=== PATIENT | female | born 1970 | race Caucasian/White ===

== ENCOUNTER 2016-03-11 14:41 | Outpatient (CLI) | payer BC | END 2016-03-11 14:42 | disposition home or self-care (01) | DX: D68.51 Activated protein C resistance (principal); Z79.01 Long term (current) use of anticoagulants ==

== ENCOUNTER 2016-04-21 12:55 | Outpatient (CLI) | payer BC | END 2016-04-21 12:56 | disposition home or self-care (01) | DX: Z79.01 Long term (current) use of anticoagulants (principal); D68.51 Activated protein C resistance ==

== ENCOUNTER 2016-06-03 11:11 | Outpatient (CLI) | payer BC | END 2016-06-03 11:12 | disposition home or self-care (01) | DX: Z79.01 Long term (current) use of anticoagulants (principal); D68.51 Activated protein C resistance ==

== ENCOUNTER 2016-07-01 10:55 | Outpatient (CLI) | payer BC | END 2016-07-01 10:56 | disposition home or self-care (01) | DX: Z79.01 Long term (current) use of anticoagulants (principal); D68.51 Activated protein C resistance ==

== ENCOUNTER 2016-07-29 09:50 | Outpatient (CLI) | payer BC ==
[2016-07-29 18:20] LABS: INR 3.5 (0.8-1.2); PT - PROTHROMBIN TIME 40.3 secs (9.9-12.6)
== END 2016-07-29 09:51 | disposition home or self-care (01) ==
LOC: LAB.F 09:50
PROVIDERS: ATTEND Family Medicine
DX: D68.51 Activated protein C resistance (principal); Z79.01 Long term (current) use of anticoagulants
CPT/HCPCS: 36415; 85610

== ENCOUNTER 2016-08-12 09:50 | Outpatient (CLI) | payer BC ==
[2016-08-12 18:42] LABS: INR 4.1 (0.8-1.2); PT - PROTHROMBIN TIME 47.5 secs (9.9-12.6)
== END 2016-08-12 09:51 | disposition home or self-care (01) ==
LOC: LAB.F 09:50
PROVIDERS: ATTEND Family Medicine
DX: D68.51 Activated protein C resistance (principal); Z79.01 Long term (current) use of anticoagulants
CPT/HCPCS: 36415; 85610

== ENCOUNTER 2016-08-27 10:46 | Outpatient (CLI) | payer BC ==
[2016-08-27 18:07] LABS: INR 2.9 (0.8-1.2); PT - PROTHROMBIN TIME 33.4 secs (9.9-12.6)
== END 2016-08-27 10:47 | disposition home or self-care (01) ==
LOC: LAB.F 10:46
PROVIDERS: ATTEND Family Medicine
DX: D68.51 Activated protein C resistance (principal); Z79.01 Long term (current) use of anticoagulants
CPT/HCPCS: 36415; 85610

== ENCOUNTER 2016-09-18 14:20 | Emergency (ER) | payer BC ==
[2016-09-18] MEDS ORDERED: ASPIRIN CHEW 81 MG TABLET PO STA (14:45)
[2016-09-18] MEDS ORDERED: NITROGLYCERIN SL 0.4 MG TABLET SL STA (14:45)
[2016-09-18 14:46] LABS: BILIRUBIN,URINE NEGATIVE (NEGATIVE)
[2016-09-18 14:47] LABS: BASOPHILS # (AUTO) 0.1 10^3/uL (0.0-0.1); BASOPHILS % (AUTO) 1.4 %; EOSINOPHILS # (AUTO) 0.1 10^3/uL (0.0-0.7); EOSINOPHILS % (AUTO) 1.8 %; HCT - HEMATOCRIT 40.1 % (37.0-47.0); HGB - HEMOGLOBIN 13.8 g/dL (12.0-16.0); LYMPHOCYTES # (AUTO) 1.7 10^3/uL (1.5-3.5); LYMPHOCYTES % (AUTO) 30.9 %; MEAN CORPUSCULAR HEMOGLOBIN 31.6 pg (27.0-31.0); MEAN CORPUSCULAR HGB CONC 34.4 g/dL (32.0-36.0); MEAN CORPUSCULAR VOLUME 91.8 fL (81.0-99.0); MEAN PLATELET VOLUME 7.2 fL (7.9-10.8); MONOCYTES # (AUTO) 0.5 10^3/uL (0.0-1.0); MONOCYTES % (AUTO) 9.1 %; NEUTROPHILS # (AUTO) 3.2 10^3/uL (1.5-6.6); NEUTROPHILS % (AUTO) 56.8 %; RED BLOOD COUNT 4.37 10^6/uL (4.20-5.40); RED CELL DISTRIBUTION WIDTH 13.3 % (12.0-15.0); UNCORRECTED WHITE BLOOD COUNT 5.7 x10^3/uL; WHITE BLOOD COUNT 5.7 x10^3/uL (4.8-10.8)
--- NOTE | 2016-09-18 14:47 | ED Physician Documentation ---
PD HPI CHEST PAIN - Stated complaint Stated Complaint: CHEST PX - Chief complaint Chief Complaint: Cardiac - History obtained from History obtained from: Patient, Friend - History of Present Illness Timing - onset: How many hours ago (1.5) Timing - onset during: Rest Timing - duration: Hours (1.5) Timing - details: Abrupt onset Pain level max: 8 Pain level now: 8 Quality: Pressure, Aching, Sharp Location: Substernal Radiation: Other (non-radiating) Improved by: Nothing Worsened by: No: Exertion, Inspiration, Eating, Movement, Palpation, Position Associated symptoms: Nausea, General Weakness. No: Shortness of air, Diaphoresis, Vomiting, Feeling faint / dizzy, Palpitations Similar symptoms before: Has not had sx before Recently seen: Not recently seen Review of Systems Ten Systems: 10 systems reviewed and negative Constitutional: denies: Fever, Chills Ears: denies: Ear pain Nose: denies: Rhinorrhea / runny nose, Congestion Throat: denies: Sore throat Cardiac: denies: Chest pain / pressure Respiratory: denies: Cough GI: denies: Nausea, Vomiting, Diarrhea Skin: denies: Rash Musculoskeletal: denies: Neck pain, Back pain Neurologic: denies: Focal weakness, Numbness, Headache PD PAST MEDICAL HISTORY - Past Medical History Past Medical History: Yes Other Past Medical History: factor V leiden - Past Surgical History Past Surgical History: Yes Other past surgical history: shoulder surgery - Present Medications Home Medications: Ambulatory Orders Medication Instructions Recorded Confirmed Hydrocodone/Acetaminophen 1 - 2 each PO Q6H PRN #14 tablet 09/18/16 [Hydrocodon-Acetaminophen 5-325] - Allergies Allergies/Adverse Reactions: Allergies Allergy/AdvReac Type Severity Reaction Status Date / Time Penicillins Allergy Unknown Verified 09/18/16 16:09 Sulfa (Sulfonamide Allergy Unknown Verified 09/18/16 16:09 Antibiotics) - Living Situation Living Arrangement: reports: At home - Social History Does the pt smoke?: No Does the pt drink ETOH?: Yes Does the pt have substance abuse?: No PD ED PE NORMAL - Vitals Vital signs reviewed: Yes - General General: Alert and oriented X 3, No acute distress, Well developed/nourished - HEENT HEENT: PERRL, Moist mucous membranes - Neck Neck: Supple, no meningeal sign, No JVD, No bruit - Cardiac Cardiac: RRR, No murmur, Strong equal pulses - Respiratory Respiratory: No respiratory distress, Clear bilaterally - Abdomen Abdomen: Soft, Other (TTP epigastric without peritoneal signs.) - Back Back: No CVA TTP, No spinal TTP - Derm Derm: Warm and dry, No rash - Extremities Extremities: No edema, No calf tenderness / cord - Neuro Neuro: Alert and oriented X 3 - Psych Psych: Normal mood, Normal affect Results - Vitals Vitals: Vital Signs - 24 hr 09/18/16 09/18/16 09/18/16 14:23 15:58 17:39 Temperature 36.8 C Heart Rate 47 L 40 L 55 L Respiratory 14 18 18 Rate Blood Pressure 142/74 H 120/73 119/65 O2 Saturation 100 97 100 09/18/16 19:15 Temperature 36.2 C L Heart Rate 51 L Respiratory 16 Rate Blood Pressure 128/60 O2 Saturation 98 Oxygen O2 Source Room air - EKG (time done) 1440 Rate: Rate (enter#) (45) Rhythm: Sinus bradycardia [place]: Normal Intervals: Other (short NM) QRS: Normal Ischemia: Normal ST segments Computer interpretation: Agree with computer - Labs Labs: Laboratory Tests 09/18/16 09/18/16 09/18/16 14:30 14:40 14:40 WBC 5.7 RBC 4.37 Hgb 13.8 Hct 40.1 MCV 91.8 MCH 31.6 H MCHC 34.4 RDW 13.3 Plt Count 232 MPV 7.2 L Neut # 3.2 Lymph # 1.7 [place] # 0.5 Eos # 0.1 Baso # 0.1 Absolute Nucleated RBC 0.00 Nucleated RBCs 0.0 PT INR Sodium 136 Potassium 3.5 Chloride 103 Carbon Dioxide 26 Anion Gap 7.0 BUN 13 Creatinine 0.8 Estimated GFR (MDRD) 77 L Glucose 113 H Calcium 9.2 Total Bilirubin 0.5 AST 32 ALT 24 Alkaline Phosphatase 48 Troponin I Total Protein 7.5 Albumin 4.7 Globulin 2.8 Albumin/Globulin Ratio 1.7 Lipase 29 Urine Color YELLOW Urine Clarity CLEAR Urine pH 6.0 Ur Specific [place] 1.010 Urine Protein NEGATIVE Urine Glucose (UA) NEGATIVE Urine Ketones NEGATIVE Urine Occult Blood NEGATIVE Urine Nitrite NEGATIVE Urine Bilirubin NEGATIVE Urine Urobilinogen 0.2 (NORMAL) Ur Leukocyte Esterase NEGATIVE Ur Microscopic Review NOT INDICATED Urine Culture Comments NOT INDICATED 09/18/16 09/18/16 09/18/16 14:40 14:40 16:45 WBC RBC Hgb Hct MCV MCH MCHC RDW Plt Count MPV Neut # Lymph # [place] # Eos # Baso # Absolute Nucleated RBC Nucleated RBCs PT 38.6 H INR 3.4 H Sodium Potassium Chloride Carbon Dioxide Anion Gap BUN Creatinine Estimated GFR (MDRD) Glucose Calcium Total Bilirubin AST ALT Alkaline Phosphatase Troponin I < 0.04 < 0.04 Total Protein Albumin Globulin Albumin/Globulin Ratio Lipase Urine Color Urine Clarity Urine pH Ur Specific [place] Urine Protein Urine Glucose (UA) Urine Ketones Urine Occult Blood Urine Nitrite Urine Bilirubin Urine Urobilinogen Ur Leukocyte Esterase Ur Microscopic Review Urine Culture Comments - Rads (name of study) CT abd/pelvis Radiology: Prelim report reviewed, EMP read contemporaneously, See rad report ( Left ovarian probable collapsing corpus luteum, measures 1.7 x 1.3 cm, within normal limits. Small free fluid in the posterior cul-de-sac. . Left adnexal varices, can be seen with pelvic congestion syndrome. Prominent left ovarian vein. Normal appendix. ) cxr Radiology: Prelim report reviewed, EMP read contemporaneously, See rad report ( no acute disease) PD MEDICAL DECISION MAKING - ED course Complexity details: reviewed results, re-evaluated patient, considered differential (No ST elevation NC, no aortic dissection, no PE, no tension pneumothorax, no aortic aneurysm), d/w patient, d/w family ED course: Patient refuses aspirin in the ED. Patient is a 46-year-old female who presents to the emergency department with chest and abdominal pain today. Not much change with morphine, nitroglycerin or GI cocktail. During her emergency department stay, the pain moved from her chest to her left lower abdomen. CT scan was undertaken and reveals a collapsing left ovarian cyst with a small free fluid in the pelvis. Possible that this is causing her lower abdominal pain? No evidence of aortic dissection , iliac artery aneurysm, aortic aneurysm. Negative troponin 2. HEART score is 1. Low risk for cardiac event. Pain well controlled in the emergency department. Recommend that she follow-up closely with her doctor for further cardiac evaluation including a cardiac stress test. She does run several miles daily and does not have any chest pain when running. No evidence of pulmonary embolus. INR is therapeutic. We will trial her on pain medication for the next 1-2 days and she will return if she worsens. Patient counseled regarding signs and symptoms for which I believe and urgent re-evaluation would be necessary. Patient with good understanding of and agreement to plan and is comfortable going home at this time This document was made in part using voice recognition software. While efforts are made to proofread this document, sound alike and grammatical errors may occur. Departure - Departure Disposition: 01 Home, Self Care Clinical Impression: Chest pain Qualifiers: Chest pain type: unspecified Qualified Code(s): R07.9 - Chest pain, unspecified Ovarian cyst Qualifiers: Laterality: left Qualified Code(s): N83.202 - Unspecified ovarian cyst, left side Condition: Good Instructions: ED Chest Pain Atypical Unkn Cause, ED Cyst Ovarian Follow-Up: Rebecca Cueto MD [Primary Care Provider] - Within 1 week Prescriptions: Hydrocodone/Acetaminophen [Hydrocodon-Acetaminophen 5-325] 1 - 2 each PO Q6H PRN #14 tablet PRN Reason: pain Comments: The cause of your symptoms is unclear today. Return if you worsen. It is recommended that you follow-up with your doctor next week for a cardiac stress test. Return immediately if you worsen in any way. The pain from your ovarian cyst should improve over the next 24-48 hours. Do not drink alcohol or drive while on narcotic pain medicine. Note that many narcotic pain relievers also contain tylenol/acetaminophen. Please ensure that your total dose of acetaminophen from all sources does not exceed 3 grams (3000mg) per day. You may constipated on this medication, take a stool softener such as "Colace" twice a day while you are on it. Also recommend a [id number] laxative such as senna or MiraLAX any day that you do not have a bowel movement. If you received narcotic pain medication in the emergency department, do not drive or operate machinery for the next 24 hours. Discharge Date/Time: 09/18/16 19:15
[2016-09-18 14:48] LABS: UA CHARGE (STRIP ONLY) YES; UR CULTURE IF IND NOT INDICATED
[2016-09-18] MEDS ORDERED: ASPIRIN CHEW 81 MG TABLET ONE (14:54)
[2016-09-18] MEDS ORDERED: NITROGLYCERIN SL 0.4 MG TABLET SL ONE (14:54)
[2016-09-18] MEDS ORDERED: LIDOCAINE VISCOUS 2% 15 ML UDC MM STA (14:56)
[2016-09-18] MEDS ORDERED: PHENobarb/HYOSCY/ATROPINE/SCOP 5 ML SYRINGE PO STA (14:56)
[2016-09-18] MEDS ORDERED: MAG HYDROX/AL HYDROX/SIMETH 30 ML UDC PO STA (14:56)
[2016-09-18] MEDS ORDERED: SUCRALFATE 1 GM/10 ML UDC PO STA (14:56)
[2016-09-18] MEDS ORDERED: SUCRALFATE 1 GM/10 ML UDC ONE (14:58)
[2016-09-18] MEDS ORDERED: PHENobarb/HYOSCY/ATROPINE/SCOP 5 ML SYRINGE PO ONE (14:58)
[2016-09-18] MEDS ORDERED: LIDOCAINE VISCOUS 2% 15 ML UDC MM ONE (14:58)
[2016-09-18] MEDS ORDERED: MAG HYDROX/AL HYDROX/SIMETH 30 ML UDC ONE (14:58)
[2016-09-18 15:00] LABS: ALBUMIN/GLOBULIN RATIO 1.7 (1.0-2.2); BILIRUBIN,TOTAL 0.5 mg/dL (0.2-1.0); CALCIUM 9.2 mg/dL (8.5-10.3); CREATININE 0.8 mg/dL (0.4-1.0); POTASSIUM 3.5 mmol/L (3.5-5.0); TOTAL PROTEIN 7.5 g/dL (6.7-8.2)
--- NOTE | 2016-09-18 15:31 | XRAY Preliminary Report ---
Exam: XR Chest 1 View IMPRESSION: No acute cardiopulmonary disease seen. Probable bilateral nipple shadows. Pulmonary nodul es are not excluded and repeat chest x-ray with nipple markers could further evaluate. [facility] SITE ID: [id number]
--- NOTE | 2016-09-18 15:34 | XRAY Report ---
EXAM: CHEST RADIOGRAPHY EXAM DATE: 09/18/2016 03:01 PM. CLINICAL HISTORY: Chest pain. COMPARISON: None. TECHNIQUE: 1 view. FINDINGS: Lungs/Pleura: Probable bilateral nipple shadows. Pulmonary nodules are not excluded and repeat chest x-ray with nipple markers could further evaluate. No pleural effusion or pneumothorax. No consolidati on or airspace disease. Mediastinum: Within exam limitations, cardiomediastinal contour is normal. IMPRESSION: No acute cardiopulmonary disease seen. Probable bilateral nipple shadows. Pulmonary nodul es are not excluded and repeat chest x-ray with nipple markers could further evaluate. [facility] Referring Provider Line: [phone] SITE ID: [id number]
[2016-09-18] MEDS ORDERED: MORPHINE 2 MG/ML SYRINGE IVP STA (15:36)
[2016-09-18 15:43] LABS: INR 3.4 (0.8-1.2); PT - PROTHROMBIN TIME 38.6 secs (9.9-12.6)
[2016-09-18] MEDS ORDERED: MORPHINE 2 MG/ML SYRINGE ONE (15:47)
[2016-09-18] MEDS ORDERED: LORazepam 2 MG/ML SYRINGE IVP STA (16:02)
[2016-09-18] MEDS ORDERED: LORazepam 2 MG/ML SYRINGE ONE (16:03)
[2016-09-18] MEDS ORDERED: IOPAMIDOL-300 100 ML VIAL IVP ONE (17:46)
[2016-09-18] MEDS ORDERED: HYDROmorphone 1 MG/ML SYRINGE IVP STA (18:23)
[2016-09-18] MEDS ORDERED: HYDROmorphone 1 MG/ML SYRINGE ONE (18:27)
--- NOTE | 2016-09-18 18:29 | CT Report ---
EXAM: CT ABDOMEN AND PELVIS EXAM DATE: 09/18/2016 05:50 PM. CLINICAL HISTORY: Left lower quadrant abdominal pain, chest pain. COMPARISONS: None. TECHNIQUE: Routine helical CT imaging was performed through the abdomen and pelvis. IV contrast: 100 mL Isovue 300. Enteric contrast: No. Reconstructions: Coronal and sagittal. In accordance with CT protocol optimization, one or more of the following dose reduction techniques w ere utilized for this exam: automated exposure control, adjustment of mA and/or KV based on patient s ize, or use of iterative reconstructive technique. FINDINGS: Lung Bases: Unremarkable. Liver: Normal. No masses. Gallbladder/Bile Ducts: Small calcified gallstones. No bile duct dilatation. Spleen: Normal. Pancreas: Normal. Adrenal Glands: Normal. Kidneys: Normal. No masses or hydronephrosis. Peritoneal Cavity/Bowel: No acute bowel findings. Moderate stool in the ascending colon. Normal appen musa. Small free fluid in the posterior cul-de-sac. Pelvic Organs: Left ovarian probable collapsing corpus luteum, measures 1.7 x 1.3 cm. Left adnexal va rices, can be seen with pelvic congestion syndrome. Prominent left ovarian vein. The uterus is anteve rted. The bladder appears unremarkable. Small free fluid in the posterior cul-de-sac. Vasculature: Nothing acute Bones: No acute bone findings IMPRESSION: 1. Left ovarian probable collapsing corpus luteum, measures 1.7 x 1.3 cm, within normal limits. 2. Small free fluid in the posterior cul-de-sac. 3. Left adnexal varices, can be seen with pelvic congestion syndrome. Prominent left ovarian vein. 4. Normal appendix. [facility] Referring Provider Line: [phone] SITE ID: [id number]
[2016-09-18] MEDS ORDERED: HYDROcod/ACETAM 5/325 MG TABLET PO STA (18:44)
[2016-09-18 19:16] VITALS: BP 128/60
== END 2016-09-18 19:15 | disposition home or self-care (01) ==
LOC: ED 14:20
DX: R07.9 Chest pain, unspecified (principal); N83.202 Unspecified ovarian cyst, left side; D68.51 Activated protein C resistance
CPT/HCPCS: 36415; 71010; 74177; 80053; 81003; 83690; 84484; 85025; 85610; 93005; 96374; 96375; 99284; 99285; A9270; J1170; J2060; Q9967; 81001; 87086

== ENCOUNTER 2016-09-24 09:43 | Outpatient (CLI) | payer BC ==
[2016-09-24 18:19] LABS: INR 2.5 (0.8-1.2); PT - PROTHROMBIN TIME 28.2 secs (9.9-12.6)
== END 2016-09-24 09:44 | disposition home or self-care (01) ==
LOC: LAB.F 09:43
PROVIDERS: ATTEND Family Medicine
DX: D68.51 Activated protein C resistance (principal); Z79.01 Long term (current) use of anticoagulants
CPT/HCPCS: 36415; 85610

== ENCOUNTER 2016-10-22 10:14 | Outpatient (CLI) | payer BC ==
[2016-10-22 17:53] LABS: INR 3.2 (0.8-1.2); PT - PROTHROMBIN TIME 36.3 secs (9.9-12.6)
== END 2016-10-22 10:15 | disposition home or self-care (01) ==
LOC: LAB.F 10:14
PROVIDERS: ATTEND Family Medicine
DX: D68.51 Activated protein C resistance (principal); Z79.01 Long term (current) use of anticoagulants
CPT/HCPCS: 36415; 85610

== ENCOUNTER 2016-11-04 13:55 | Outpatient (CLI) | payer BC ==
[2016-11-04 18:34] LABS: INR 3.1 (0.8-1.2); PT - PROTHROMBIN TIME 35.4 secs (9.9-12.6)
== END 2016-11-04 13:56 | disposition home or self-care (01) ==
LOC: LAB.F 13:55
PROVIDERS: ATTEND Family Medicine
DX: D68.51 Activated protein C resistance (principal)
CPT/HCPCS: 36415; 85610

== ENCOUNTER 2016-11-20 09:45 | Outpatient (CLI) | payer BC ==
[2016-11-20 18:20] LABS: INR 2.8 (0.8-1.2); PT - PROTHROMBIN TIME 31.9 secs (9.9-12.6)
== END 2016-11-20 09:46 | disposition home or self-care (01) ==
LOC: LAB.F 09:45
PROVIDERS: ATTEND Family Medicine
DX: D68.51 Activated protein C resistance (principal); Z79.01 Long term (current) use of anticoagulants
CPT/HCPCS: 36415; 85610

== ENCOUNTER 2016-12-16 09:38 | Outpatient (CLI) | payer BC ==
[2016-12-16 18:05] LABS: INR 2.5 (0.8-1.2); PT - PROTHROMBIN TIME 28.9 secs (9.9-12.6)
== END 2016-12-16 09:39 | disposition home or self-care (01) ==
LOC: LAB.F 09:38
PROVIDERS: ATTEND Family Medicine
DX: D68.51 Activated protein C resistance (principal); Z79.01 Long term (current) use of anticoagulants
CPT/HCPCS: 36415; 85610

== ENCOUNTER 2017-02-10 12:40 | Outpatient (CLI) | payer BC ==
[2017-02-10 18:55] LABS: INR 2.5 (0.8-1.2); PT - PROTHROMBIN TIME 27.1 secs (9.9-12.6)
== END 2017-02-10 12:41 | disposition home or self-care (01) ==
LOC: LAB.F 12:40
PROVIDERS: ATTEND Family Medicine
DX: D68.51 Activated protein C resistance (principal); Z79.01 Long term (current) use of anticoagulants
CPT/HCPCS: 36415; 85610

== ENCOUNTER 2017-03-11 14:21 | Outpatient (CLI) | payer OTHER ==
[2017-03-11 17:47] LABS: INR 2.9 (0.8-1.2); PT - PROTHROMBIN TIME 31.6 secs (9.9-12.6)
== END 2017-03-11 14:22 | disposition home or self-care (01) ==
LOC: LAB.F 14:21
PROVIDERS: ATTEND Family Medicine
DX: D68.51 Activated protein C resistance (principal); Z79.01 Long term (current) use of anticoagulants
CPT/HCPCS: 36415; 85610

== ENCOUNTER 2017-04-14 08:00 | Outpatient (CLI) | payer OTHER ==
[2017-04-14 17:57] LABS: INR 2.1 (0.8-1.2); PT - PROTHROMBIN TIME 22.8 secs (9.9-12.6)
== END 2017-04-14 08:01 | disposition home or self-care (01) ==
LOC: LAB.R 08:00 → LAB.F 08:01
PROVIDERS: ATTEND Family Medicine
DX: D68.51 Activated protein C resistance (principal); Z79.01 Long term (current) use of anticoagulants
CPT/HCPCS: 36415; 85610

== ENCOUNTER 2017-05-26 10:05 | Outpatient (CLI) | payer OTHER ==
[2017-05-26 17:58] LABS: INR 3.3 (0.8-1.2); PT - PROTHROMBIN TIME 35.7 secs (9.9-12.6)
== END 2017-05-26 10:06 | disposition home or self-care (01) ==
LOC: LAB.F 10:05
PROVIDERS: ATTEND Family Medicine
DX: D68.51 Activated protein C resistance (principal); Z79.01 Long term (current) use of anticoagulants
CPT/HCPCS: 36415; 85610

== ENCOUNTER 2017-06-21 10:55 | Outpatient (CLI) | payer OTHER ==
[2017-06-21 17:46] LABS: INR 3.1 (0.8-1.2); PT - PROTHROMBIN TIME 33.8 secs (9.9-12.6)
== END 2017-06-21 10:56 | disposition home or self-care (01) ==
LOC: LAB.F 10:55
PROVIDERS: ATTEND Family Medicine
DX: D68.51 Activated protein C resistance (principal); Z79.01 Long term (current) use of anticoagulants
CPT/HCPCS: 36415; 85610

== ENCOUNTER 2017-07-08 09:40 | Outpatient (CLI) | payer OTHER | END 2017-07-08 09:41 | disposition home or self-care (01) | LOC: LAB.F 09:40 | PROVIDERS: ATTEND Family Medicine | DX: D68.51 Activated protein C resistance (principal); Z79.01 Long term (current) use of anticoagulants | CPT/HCPCS: 36415; 85610 ==

== ENCOUNTER 2017-08-05 09:20 | Outpatient (CLI) | payer OTHER ==
[2017-08-05 18:33] LABS: INR 2.5 (0.8-1.2); PT - PROTHROMBIN TIME 27.1 secs (9.9-12.6)
== END 2017-08-05 09:21 | disposition home or self-care (01) ==
LOC: LAB.F 09:20
PROVIDERS: ATTEND Family Medicine
DX: D68.51 Activated protein C resistance (principal); Z79.01 Long term (current) use of anticoagulants
CPT/HCPCS: 36415; 85610

== ENCOUNTER 2017-09-09 10:19 | Outpatient (CLI) | payer OTHER ==
[2017-09-09 17:42] LABS: INR 3.3 (0.8-1.2); PT - PROTHROMBIN TIME 35.3 secs (9.9-12.6)
== END 2017-09-09 10:20 | disposition home or self-care (01) ==
LOC: LAB.F 10:19
PROVIDERS: ATTEND Family Medicine
DX: Z79.01 Long term (current) use of anticoagulants (principal); D68.51 Activated protein C resistance
CPT/HCPCS: 36415; 85610

== ENCOUNTER 2017-11-16 08:00 | Outpatient (CLI) | payer OTHER ==
[2017-11-16 20:23] LABS: INR 3.4 (0.8-1.2); PT - PROTHROMBIN TIME 36.7 secs (9.9-12.6)
== END 2017-11-16 08:01 | disposition home or self-care (01) ==
LOC: LAB.F 08:00
PROVIDERS: ATTEND Family Medicine
DX: D68.51 Activated protein C resistance (principal); Z79.01 Long term (current) use of anticoagulants
CPT/HCPCS: 36415; 85610

== ENCOUNTER 2017-12-13 09:38 | Outpatient (CLI) | payer OTHER ==
[2017-12-13 17:57] LABS: INR 3.6 (0.8-1.2); PT - PROTHROMBIN TIME 39.1 secs (9.9-12.6)
[2017-12-13 18:03] LABS: HGB - HEMOGLOBIN 13.5 g/dL (12.0-16.0); MEAN CORPUSCULAR HEMOGLOBIN 31.8 pg (27.0-31.0); MEAN CORPUSCULAR HGB CONC 34.1 g/dL (32.0-36.0); MEAN CORPUSCULAR VOLUME 93.2 fL (81.0-99.0); MEAN PLATELET VOLUME 8.3 fL (7.9-10.8); RED BLOOD COUNT 4.24 10^6/uL (4.20-5.40); RED CELL DISTRIBUTION WIDTH 12.5 % (12.0-15.0); WHITE BLOOD COUNT 5.2 x10^3/uL (4.8-10.8)
[2017-12-13 18:20] LABS: ALBUMIN 4.2 g/dL (3.2-5.5); ALBUMIN/GLOBULIN RATIO 1.6 (1.0-2.2); ALKALINE PHOSPHATASE 40 IU/L (42-121); ALT ALANINE AMINOTRANSFERASE 19 IU/L (10-60); AST ASPARTATE AMINOTRANSFERASE 28 IU/L (10-42); BILIRUBIN,TOTAL 0.6 mg/dL (0.2-1.0); BUN - BLOOD UREA NITROGEN 13 mg/dL (6-20); CALCIUM 9.1 mg/dL (8.5-10.3); CARBON DIOXIDE - CO2 29 mmol/L (21-32); CHLORIDE 102 mmol/L (101-111); CHOL/HDL RATIO 1.7 (<4.4); CHOLESTEROL 157 mg/dL; CREATININE 0.9 mg/dL (0.4-1.0); GFR - MDRD 67 (>89); GLUCOSE 77 mg/dL (70-100); HDL CHOLESTEROL 92 mg/dL; SODIUM 138 mmol/L (135-145); TOTAL PROTEIN 6.8 g/dL (6.7-8.2)
[2017-12-13 18:46] LABS: LDL CHOLESTEROL,DIRECT 58 mg/dL; LDLD/HDL RATIO 0.6 (<4.4)
== END 2017-12-13 09:39 | disposition home or self-care (01) ==
LOC: LAB.F 09:38
PROVIDERS: ATTEND Family Medicine
DX: D68.51 Activated protein C resistance (principal); Z79.01 Long term (current) use of anticoagulants; Z13.6 Encounter for screening for cardiovascular disorders
CPT/HCPCS: 36415; 80053; 80061; 83721; 85027; 85610

== ENCOUNTER 2017-12-27 09:53 | Outpatient (CLI) | payer OTHER | END 2017-12-27 09:54 | disposition home or self-care (01) | LOC: LAB.F 09:53 | PROVIDERS: ATTEND Family Medicine | DX: D68.51 Activated protein C resistance (principal); Z79.01 Long term (current) use of anticoagulants | CPT/HCPCS: 36415; 85610 ==

== ENCOUNTER 2018-01-13 11:07 | Outpatient (CLI) | payer OTHER ==
[2018-01-13 18:51] LABS: INR 2.4 (0.8-1.2); PT - PROTHROMBIN TIME 26.6 secs (9.9-12.6)
== END 2018-01-13 11:08 | disposition home or self-care (01) ==
LOC: LAB.F 11:07
PROVIDERS: ATTEND Family Medicine
DX: D68.51 Activated protein C resistance (principal); Z79.01 Long term (current) use of anticoagulants
CPT/HCPCS: 36415; 85610

== ENCOUNTER 2018-02-14 11:26 | Outpatient (CLI) | payer OTHER ==
[2018-02-14 18:33] LABS: INR 1.6 (0.8-1.2); PT - PROTHROMBIN TIME 18.4 secs (9.9-12.6)
== END 2018-02-14 11:27 | disposition home or self-care (01) ==
LOC: LAB.F 11:26
PROVIDERS: ATTEND Family Medicine
DX: D68.51 Activated protein C resistance (principal); Z79.01 Long term (current) use of anticoagulants
CPT/HCPCS: 36415; 85610

== ENCOUNTER 2018-02-21 10:08 | Outpatient (CLI) | payer OTHER ==
[2018-02-21 17:58] LABS: INR 2.2 (0.8-1.2); PT - PROTHROMBIN TIME 24.2 secs (9.9-12.6)
== END 2018-02-21 10:09 | disposition home or self-care (01) ==
LOC: LAB.F 10:08
PROVIDERS: ATTEND Family Medicine
DX: D68.51 Activated protein C resistance (principal); Z79.01 Long term (current) use of anticoagulants
CPT/HCPCS: 36415; 85610

== ENCOUNTER 2018-04-08 09:13 | Outpatient (CLI) | payer OTHER ==
[2018-04-08 16:42] LABS: INR 2.3 (0.8-1.2); PT - PROTHROMBIN TIME 26.3 secs (9.9-12.6)
== END 2018-04-08 09:14 | disposition home or self-care (01) ==
LOC: LAB.F 09:13
PROVIDERS: ATTEND Family Medicine
DX: Z79.01 Long term (current) use of anticoagulants (principal); D68.51 Activated protein C resistance
CPT/HCPCS: 36415; 85610

== ENCOUNTER 2018-06-07 12:10 | Outpatient (CLI) | payer OTHER ==
[2018-06-07 18:00] LABS: INR 2.1 (0.8-1.2); PT - PROTHROMBIN TIME 24.1 secs (9.9-12.6)
== END 2018-06-07 23:59 | disposition home or self-care (01) ==
LOC: LAB.F 12:10
PROVIDERS: ATTEND Family Medicine
DX: D68.51 Activated protein C resistance (principal); Z79.01 Long term (current) use of anticoagulants
CPT/HCPCS: 36415; 85610

== ENCOUNTER 2018-07-14 09:30 | Outpatient (CLI) | payer OTHER ==
[2018-07-14 17:34] LABS: INR 3.5 (0.8-1.2); PT - PROTHROMBIN TIME 39.3 secs (9.9-12.6)
== END 2018-07-14 09:31 | disposition home or self-care (01) ==
LOC: LAB.F 09:30
PROVIDERS: ATTEND Family Medicine
DX: Z51.81 Encounter for therapeutic drug level monitoring (principal); Z79.01 Long term (current) use of anticoagulants; D68.51 Activated protein C resistance
CPT/HCPCS: 36415; 85610

== ENCOUNTER 2018-09-12 11:20 | Outpatient (CLI) | payer OTHER | END 2018-09-12 11:21 | disposition home or self-care (01) | LOC: LAB.S 11:20 | PROVIDERS: ATTEND Family Medicine | DX: Z79.01 Long term (current) use of anticoagulants (principal); D68.51 Activated protein C resistance | CPT/HCPCS: 85610 ==

== ENCOUNTER 2018-10-18 13:39 | Outpatient (CLI) | payer SELFPAY ==
[2018-10-18 17:52] LABS: INR 2.1 (0.8-1.2); PT - PROTHROMBIN TIME 23.2 secs (9.9-12.6)
== END 2018-10-18 13:40 | disposition home or self-care (01) ==
LOC: LAB.S 13:39
PROVIDERS: ATTEND Family Medicine
DX: Z79.01 Long term (current) use of anticoagulants (principal); D68.51 Activated protein C resistance
CPT/HCPCS: 36415; 85610

== ENCOUNTER 2018-11-08 12:13 | Outpatient (CLI) | payer OTHER ==
[2018-11-08 18:00] LABS: INR 3.4 (0.8-1.2); PT - PROTHROMBIN TIME 37.8 secs (9.9-12.6)
== END 2018-11-08 12:14 | disposition home or self-care (01) ==
LOC: LAB.S 12:13
PROVIDERS: ATTEND Family Medicine
DX: Z51.81 Encounter for therapeutic drug level monitoring (principal)
CPT/HCPCS: 36415; 85610

== ENCOUNTER 2018-11-30 11:30 | Outpatient (CLI) | payer OTHER ==
[2018-11-30 17:58] LABS: INR 3.2 (0.8-1.2); PT - PROTHROMBIN TIME 34.2 secs (9.9-12.6)
== END 2018-11-30 11:31 | disposition home or self-care (01) ==
LOC: LAB.S 11:30
PROVIDERS: ATTEND Family Medicine
DX: Z51.81 Encounter for therapeutic drug level monitoring (principal); Z79.01 Long term (current) use of anticoagulants
CPT/HCPCS: 36415; 85610

== ENCOUNTER 2018-12-16 11:13 | Outpatient (CLI) | payer OTHER ==
[2018-12-16 17:13] LABS: INR 2.7 (0.8-1.2); PT - PROTHROMBIN TIME 28.8 secs (9.9-12.6)
== END 2018-12-16 11:14 | disposition home or self-care (01) ==
LOC: LAB.S 11:13
PROVIDERS: ATTEND Family Medicine
DX: Z51.81 Encounter for therapeutic drug level monitoring (principal); Z79.01 Long term (current) use of anticoagulants
CPT/HCPCS: 36415; 85610

== ENCOUNTER 2019-02-20 11:32 | Outpatient (CLI) | payer OTHER ==
[2019-02-20 17:54] LABS: INR 1.6 (0.8-1.2); PT - PROTHROMBIN TIME 18.1 secs (9.9-12.6)
== END 2019-02-20 11:33 | disposition home or self-care (01) ==
LOC: LAB.S 11:32
PROVIDERS: ATTEND Family Medicine
DX: Z51.81 Encounter for therapeutic drug level monitoring (principal); Z79.01 Long term (current) use of anticoagulants
CPT/HCPCS: 36415; 85610

== ENCOUNTER 2019-02-23 10:02 | Outpatient (CLI) | payer OTHER ==
[2019-02-23 18:06] LABS: INR 2.4 (0.8-1.2); PT - PROTHROMBIN TIME 25.7 secs (9.9-12.6)
== END 2019-02-23 10:03 | disposition home or self-care (01) ==
LOC: LAB.S 10:02
PROVIDERS: ATTEND Family Medicine
DX: Z51.81 Encounter for therapeutic drug level monitoring (principal); Z79.01 Long term (current) use of anticoagulants
CPT/HCPCS: 36415; 85610

== ENCOUNTER 2019-03-17 10:22 | Outpatient (CLI) | payer OTHER ==
[2019-03-17 17:51] LABS: INR 2.6 (0.8-1.2); PT - PROTHROMBIN TIME 28.2 secs (9.9-12.6)
== END 2019-03-17 10:23 | disposition home or self-care (01) ==
LOC: LAB.S 10:22
PROVIDERS: ATTEND Family Medicine
DX: Z51.81 Encounter for therapeutic drug level monitoring (principal); Z79.01 Long term (current) use of anticoagulants
CPT/HCPCS: 36415; 85610

== ENCOUNTER 2019-05-23 09:54 | Outpatient (CLI) | payer OTHER ==
[2019-05-23 17:16] LABS: INR 4.1 (0.8-1.2); PT - PROTHROMBIN TIME 43.6 secs (9.9-12.6)
== END 2019-05-23 09:55 | disposition home or self-care (01) ==
LOC: LAB.S 09:54
PROVIDERS: ATTEND Family Medicine
DX: Z51.81 Encounter for therapeutic drug level monitoring (principal); Z79.01 Long term (current) use of anticoagulants
CPT/HCPCS: 36415; 85610

== ENCOUNTER 2020-01-08 13:31 | Outpatient (CLI) | payer OTHER ==
[2020-01-08 20:26] LABS: INR 2.9 (0.8-1.2); PT - PROTHROMBIN TIME 29.8 secs (9.9-12.6)
== END 2020-01-08 13:32 | disposition home or self-care (01) ==
LOC: LAB.S 13:31
PROVIDERS: ATTEND Internal Medicine
DX: I82.409 Acute embolism and thrombosis of unspecified deep veins of unspecified lower extremity (principal); D68.51 Activated protein C resistance
CPT/HCPCS: 36415; 85610

== ENCOUNTER 2020-04-12 16:13 | Outpatient (CLI) | payer OTHER ==
--- NOTE | 2020-04-12 16:43 | XRAY Report ---
PROCEDURE: Ribs w/PA Chest LT INDICATIONS: FRACTURE OF ONE RIB, LEFT SIDE TECHNIQUE: 3 views of the left ribs were acquired, along with a single view chest. COMPARISON: Chest x-ray 09/18/2016 FINDINGS: Surgical changes and devices: None. Bones and chest wall: No fractures or dislocations. No suspicious bony lesions. Overlying soft tis sues appear unremarkable. Lungs and pleura: No pleural effusions or pneumothorax. Lungs appear clear. Mediastinum: Mediastinal contours appear normal. Heart size is normal. IMPRESSION: No visualized acute fracture or dislocation. However, occult injury cannot be excluded. Recommend dawson rt interval imaging follow-up in 7-10 days as clinically indicated for additional evaluation. Reviewed by: Jami Wright MD on 04/12/2020 4:42 PM PST Approved by: Jami Wright MD on 04/12/2020 4:42 PM PST Station ID: [id number]
[2020-04-12 20:03] LABS: BASOPHILS # (AUTO) 0.1 10^3/uL (0.0-0.1); BASOPHILS % (AUTO) 1.1 %; EOSINOPHILS # (AUTO) 0.1 10^3/uL (0.0-0.7); EOSINOPHILS % (AUTO) 1.4 %; HGB - HEMOGLOBIN 13.4 g/dL (12.0-16.0); LYMPHOCYTES # (AUTO) 1.8 10^3/uL (1.5-3.5); LYMPHOCYTES % (AUTO) 25.5 %; MEAN CORPUSCULAR HEMOGLOBIN 31.2 pg (27.0-31.0); MEAN CORPUSCULAR HGB CONC 32.5 g/dL (32.0-36.0); MEAN PLATELET VOLUME 10.4 fL (7.9-10.8); MONOCYTES # (AUTO) 0.6 10^3/uL (0.0-1.0); MONOCYTES % (AUTO) 8.4 %; NEUTROPHILS # (AUTO) 4.5 10^3/uL (1.5-6.6); NEUTROPHILS % (AUTO) 63.3 %; PLT - PLATELET COUNT 228 10^3/uL (130-450); RED BLOOD COUNT 4.29 10^6/uL (4.20-5.40); RED CELL DISTRIBUTION WIDTH 13.1 % (12.0-15.0); WHITE BLOOD COUNT 7.1 x10^3/uL (4.8-10.8)
[2020-04-12 20:13] LABS: INR 2.5 (0.8-1.2); PT - PROTHROMBIN TIME 26.2 secs (9.9-12.6)
== END 2020-04-12 23:59 | disposition home or self-care (01) ==
LOC: DI.S 16:13
PROVIDERS: ATTEND Emergency Medicine
DX: S22.32XA Fracture of one rib, left side, initial encounter for closed fracture (principal)
CPT/HCPCS: 36415; 85025; 85610

== ENCOUNTER 2020-06-20 15:08 | Outpatient (CLI) | payer OTHER ==
[2020-06-20 20:08] LABS: INR 2.6 (0.8-1.2)
== END 2020-06-20 15:09 | disposition home or self-care (01) ==
LOC: LAB.S 15:08
PROVIDERS: ATTEND Internal Medicine
DX: I82.409 Acute embolism and thrombosis of unspecified deep veins of unspecified lower extremity (principal); D68.51 Activated protein C resistance
CPT/HCPCS: 85610

== ENCOUNTER 2020-12-12 11:16 | Outpatient (CLI) | payer OTHER ==
[2020-12-12 14:43] LABS: INR 1.9 (0.8-1.2); PT - PROTHROMBIN TIME 21.6 secs (9.9-12.6)
== END 2020-12-12 11:17 | disposition home or self-care (01) ==
LOC: LAB.S 11:16
PROVIDERS: ATTEND Internal Medicine
DX: I82.409 Acute embolism and thrombosis of unspecified deep veins of unspecified lower extremity (principal); D68.51 Activated protein C resistance
CPT/HCPCS: 36415; 85610

== ENCOUNTER 2021-04-23 11:56 | Outpatient (CLI) | payer OTHER ==
[2021-04-23 15:59] LABS: INR 1.6 (0.8-1.2); PT - PROTHROMBIN TIME 17.2 secs (9.9-12.6)
== END 2021-04-23 11:57 | disposition home or self-care (01) ==
LOC: LAB.S 11:56
PROVIDERS: ATTEND Internal Medicine
DX: I82.409 Acute embolism and thrombosis of unspecified deep veins of unspecified lower extremity (principal); D68.51 Activated protein C resistance
CPT/HCPCS: 36415; 85610

== ENCOUNTER 2021-07-23 12:49 | Outpatient (CLI) | payer OTHER ==
[2021-07-23 14:25] LABS: INR 2.8 (0.8-1.2); PT - PROTHROMBIN TIME 31.4 secs (9.9-12.6)
== END 2021-07-23 12:50 | disposition home or self-care (01) ==
LOC: LAB.S 12:49
PROVIDERS: ATTEND Internal Medicine
DX: I82.409 Acute embolism and thrombosis of unspecified deep veins of unspecified lower extremity (principal); D68.51 Activated protein C resistance
CPT/HCPCS: 36415; 85610

== ENCOUNTER 2021-12-31 10:47 | Outpatient (CLI) | payer OTHER ==
[2021-12-31 15:24] LABS: INR 2.2 (0.8-1.2); PT - PROTHROMBIN TIME 23.7 secs (9.9-12.6)
== END 2021-12-31 10:48 | disposition home or self-care (01) ==
LOC: LAB.S 10:47
PROVIDERS: ATTEND Family Medicine
DX: D68.2 Hereditary deficiency of other clotting factors (principal); D68.51 Activated protein C resistance; Z86.718 Personal history of other venous thrombosis and embolism
CPT/HCPCS: 36415; 85610

== ENCOUNTER 2022-01-28 11:16 | Outpatient (CLI) | payer OTHER ==
[2022-01-28 14:32] LABS: INR 2.2 (0.8-1.2); PT - PROTHROMBIN TIME 23.2 secs (9.9-12.6)
== END 2022-01-28 11:17 | disposition home or self-care (01) ==
LOC: LAB.S 11:16
PROVIDERS: ATTEND Family Medicine
DX: D68.2 Hereditary deficiency of other clotting factors (principal); D68.51 Activated protein C resistance; Z86.718 Personal history of other venous thrombosis and embolism
CPT/HCPCS: 36415; 85610

== ENCOUNTER 2022-03-24 10:44 | Outpatient (CLI) | payer OTHER ==
[2022-03-24 16:10] LABS: INR 1.9 (0.8-1.2); PT - PROTHROMBIN TIME 20.7 secs (9.9-12.6)
== END 2022-03-24 10:45 | disposition home or self-care (01) ==
LOC: LAB.S 10:44
PROVIDERS: ATTEND Family Medicine
DX: D68.2 Hereditary deficiency of other clotting factors (principal); D68.51 Activated protein C resistance; Z86.718 Personal history of other venous thrombosis and embolism
CPT/HCPCS: 36415; 85610

== ENCOUNTER 2022-04-20 10:51 | Outpatient (CLI) | payer OTHER ==
[2022-04-20 14:42] LABS: INR 4.1 (0.8-1.2); PT - PROTHROMBIN TIME 42.1 secs (9.9-12.6)
== END 2022-04-20 10:52 | disposition home or self-care (01) ==
LOC: LAB.S 10:51
PROVIDERS: ATTEND Internal Medicine
DX: D68.2 Hereditary deficiency of other clotting factors (principal); D68.51 Activated protein C resistance; Z86.718 Personal history of other venous thrombosis and embolism
CPT/HCPCS: 36415; 85610

== ENCOUNTER 2022-05-18 15:06 | Outpatient (CLI) | payer OTHER ==
[2022-05-18 20:05] LABS: INR 2.2 (0.8-1.2); PT - PROTHROMBIN TIME 23.7 secs (9.9-12.6)
== END 2022-05-18 15:07 | disposition home or self-care (01) ==
LOC: LAB.S 15:06
PROVIDERS: ATTEND Family Medicine
DX: D68.2 Hereditary deficiency of other clotting factors (principal); D68.51 Activated protein C resistance; Z86.718 Personal history of other venous thrombosis and embolism
CPT/HCPCS: 36415; 85610

== ENCOUNTER 2022-06-16 13:40 | Outpatient (CLI) | payer OTHER ==
[2022-06-16 20:11] LABS: INR 2.9 (0.8-1.2); PT - PROTHROMBIN TIME 30.6 secs (9.9-12.6)
== END 2022-06-16 13:41 | disposition home or self-care (01) ==
LOC: LAB.S 13:40
PROVIDERS: ATTEND Family Medicine
DX: D68.2 Hereditary deficiency of other clotting factors (principal); D68.51 Activated protein C resistance; Z86.718 Personal history of other venous thrombosis and embolism
CPT/HCPCS: 36415; 36416; 85610

== ENCOUNTER 2022-07-13 13:17 | Outpatient (CLI) | payer OTHER ==
[2022-07-13 19:51] LABS: INR 3.4 (0.8-1.2); PT - PROTHROMBIN TIME 34.7 secs (9.9-12.6)
== END 2022-07-13 13:18 | disposition home or self-care (01) ==
LOC: LAB.S 13:17
PROVIDERS: ATTEND Family Medicine
DX: D68.2 Hereditary deficiency of other clotting factors (principal); D68.51 Activated protein C resistance; Z86.718 Personal history of other venous thrombosis and embolism
CPT/HCPCS: 36415; 85610

== ENCOUNTER 2022-11-04 11:56 | Outpatient (CLI) | payer OTHER ==
--- NOTE | 2022-11-04 13:14 | XRAY Report ---
PROCEDURE: Cervical Spine 2 View INDICATIONS: NECK PAIN,CHORNIC TECHNIQUE: 3 view(s) of the cervical spine were acquired. COMPARISON: None. FINDINGS: Bones: No fractures or dislocations to the C7 level. The lateral masses of C1 appear intact on the odontoid view. No suspicious bony lesions. Moderate disc height loss at C4-5, C5-6, C6-7. Mild disc height loss at C7-T1 and C2-3. Multilevel facet arthrosis, most prominent at C4-5, C5-6. Soft tissues: No prevertebral soft tissue swelling. IMPRESSION: Mild to moderate, multilevel degenerative disc disease and facet arthrosis. Reviewed by: Mark Dempsey on 11/04/2022 1:13 PM PDT Approved by: Mark Dempsey on 11/04/2022 1:13 PM PDT Station ID: [id number]
--- NOTE | 2022-11-04 13:52 | XRAY Report ---
PROCEDURE: Shoulder 3 View RT INDICATIONS: SHOULDER IMPINGEMENT SYNDROME,RIGHT TECHNIQUE: 4 views of the shoulder were acquired. COMPARISON: None. FINDINGS: Bones: No fractures or dislocations. No suspicious bony lesions. Visualized ribs appear intact. Soft tissues: No suspicious soft tissue calcifications. The visualized lungs are within normal limi ts. IMPRESSION: No acute bony abnormality. Reviewed by: Mark Dempsey on 11/04/2022 1:51 PM PDT Approved by: Mark Dempsey on 11/04/2022 1:51 PM PDT Station ID: [id number]
[2022-11-04 15:46] LABS: INR 3.2 (0.8-1.2); PT - PROTHROMBIN TIME 32.3 secs (9.9-12.6)
== END 2022-11-04 11:57 | disposition home or self-care (01) ==
LOC: DI.S 11:56
PROVIDERS: ATTEND Internal Medicine
DX: M75.41 Impingement syndrome of right shoulder (principal); D68.2 Hereditary deficiency of other clotting factors; D68.51 Activated protein C resistance; Z86.718 Personal history of other venous thrombosis and embolism; M47.812 Spondylosis without myelopathy or radiculopathy, cervical region; M50.321 Other cervical disc degeneration at C4-C5 level
CPT/HCPCS: 36415; 85610

== ENCOUNTER 2023-01-18 11:10 | Outpatient (CLI) | payer OTHER ==
[2023-01-18 14:49] LABS: INR 2.4 (0.8-1.2); PT - PROTHROMBIN TIME 25.5 secs (9.9-12.6)
== END 2023-01-18 11:11 | disposition home or self-care (01) ==
LOC: LAB.S 11:10
PROVIDERS: ATTEND Family Medicine
DX: D68.2 Hereditary deficiency of other clotting factors (principal); D68.51 Activated protein C resistance; Z86.718 Personal history of other venous thrombosis and embolism
CPT/HCPCS: 36415; 85610

== ENCOUNTER 2023-03-24 10:48 | Outpatient (CLI) | payer OTHER ==
[2023-03-24 15:01] LABS: INR 2.6 (0.8-1.2); PT - PROTHROMBIN TIME 27.6 secs (9.9-12.6)
== END 2023-03-24 10:49 | disposition home or self-care (01) ==
LOC: LAB.S 10:48
PROVIDERS: ATTEND Family Medicine
DX: D68.2 Hereditary deficiency of other clotting factors (principal); D68.51 Activated protein C resistance; Z86.718 Personal history of other venous thrombosis and embolism
CPT/HCPCS: 36415; 36416; 85610

== ENCOUNTER 2023-04-17 13:46 | Outpatient (CLI) | payer OTHER ==
--- NOTE | 2023-04-18 20:53 | XRAY Report ---
PROCEDURE: Foot 3+V LT INDICATIONS: XRAY TECHNIQUE: views of the foot were acquired. COMPARISON: None. FINDINGS: Bones: No fractures or dislocations. No suspicious bony lesions. Soft tissues: No suspicious soft tissue calcifications or masses. IMPRESSION: No acute bony abnormality. If pain persists with conservative management, consider repeat radiographs in 10-14 days or cross-sectional imaging. Alternatively, There is a high clinical suspicion for stress fracture, nuclear medicine bone scan could be used to f urther characterize findings. Reviewed by: Ana Maria Castillo MD on 04/18/2023 8:52 PM PST Approved by: Ana Maria Castillo MD on 04/18/2023 8:52 PM PST Station ID: [id number]
== END 2023-04-17 13:47 | disposition home or self-care (01) ==
LOC: DI.S 13:46
PROVIDERS: ATTEND Internal Medicine
DX: M79.672 Pain in left foot (principal)

== ENCOUNTER 2023-05-07 10:36 | Outpatient (CLI) | payer OTHER ==
[2023-05-07 14:55] LABS: BASOPHILS # (AUTO) 0.1 10^3/uL (0.0-0.1); BASOPHILS % (AUTO) 2.1 %; EOSINOPHILS % (AUTO) 0.7 %; HCT - HEMATOCRIT 41.2 % (37.0-47.0); HGB - HEMOGLOBIN 13.8 g/dL (12.0-16.0); LYMPHOCYTES # (AUTO) 1.4 10^3/uL (1.5-3.5); LYMPHOCYTES % (AUTO) 31.3 %; MEAN CORPUSCULAR HEMOGLOBIN 31.5 pg (27.0-31.0); MEAN CORPUSCULAR HGB CONC 33.5 g/dL (32.0-36.0); MEAN CORPUSCULAR VOLUME 94.1 fL (81.0-99.0); MEAN PLATELET VOLUME 10.3 fL (7.9-10.8); MONOCYTES # (AUTO) 0.4 10^3/uL (0.0-1.0); MONOCYTES % (AUTO) 8.6 %; NEUTROPHILS # (AUTO) 2.5 10^3/uL (1.5-6.6); NEUTROPHILS % (AUTO) 56.6 %; PLT - PLATELET COUNT 230 10^3/uL (130-450); RED BLOOD COUNT 4.38 10^6/uL (4.20-5.40); RED CELL DISTRIBUTION WIDTH 12.9 % (12.0-15.0); WHITE BLOOD COUNT 4.3 x10^3/uL (4.8-10.8)
[2023-05-07 16:32] LABS: ALBUMIN 4.7 g/dL (3.2-5.5); ALBUMIN/GLOBULIN RATIO 1.9 (1.0-2.2); ALKALINE PHOSPHATASE 44 IU/L (42-121); ALT ALANINE AMINOTRANSFERASE 21 IU/L (10-60); AST ASPARTATE AMINOTRANSFERASE 29 IU/L (10-42); BILIRUBIN,TOTAL 0.8 mg/dL (0.2-1.0); BUN - BLOOD UREA NITROGEN 20 mg/dL (6-20); CALCIUM 10.2 mg/dL (8.5-10.3); CARBON DIOXIDE - CO2 29 mmol/L (21-32); CHLORIDE 102 mmol/L (101-111); CHOLESTEROL 230 mg/dL; CREATININE 0.8 mg/dL (0.6-1.3); CRP - C-REACTIVE PROTEIN < 0.5 mg/dL (<0.5); GFR - MDRD 75 (>89); GLUCOSE 101 mg/dL (74-104); HDL CHOLESTEROL 113 mg/dL; LDL CHOLESTEROL,CALCULATED 93 mg/dL; LDL/HDL RATIO 0.8 (<4.4); POTASSIUM 3.8 mmol/L (3.5-4.5); SODIUM 139 mmol/L (135-145); TOTAL PROTEIN 7.2 g/dL (6.4-8.9); TRIGLYCERIDES 120 mg/dL (48-352); URIC ACID 5.3 mg/dL (2.3-6.6); VLDL CHOLESTEROL 24 mg/dL
[2023-05-07 16:49] LABS: THYROID STIMULATING HORMONE 1.23 uIU/mL (0.34-5.60)
[2023-05-07 21:34] LABS: ESTIMATED AVERAGE GLUCOSE 105 mg/dL (70-100); HEMOGLOBIN A1c% 5.3 % (4.27-6.07)
[2023-05-08 08:10] LABS: ESTRADIOL <5.0 pg/mL (.); PROGESTERONE 0.3 ng/mL (.)
== END 2023-05-07 10:37 | disposition home or self-care (01) ==
LOC: LAB.S 10:36
PROVIDERS: ATTEND Internal Medicine
DX: M25.572 Pain in left ankle and joints of left foot (principal)
CPT/HCPCS: 36415; 80053; 80061; 82670; 83001; 83002; 83036; 83721; 84144; 84443; 84550; 85025; 86140

== ENCOUNTER 2023-07-02 09:51 | Outpatient (CLI) | payer OTHER ==
[2023-07-02 15:53] LABS: INR 2.5 (0.8-1.2); PT - PROTHROMBIN TIME 25.2 secs (9.9-12.6)
== END 2023-07-02 09:52 | disposition home or self-care (01) ==
LOC: LAB.S 09:51
PROVIDERS: ATTEND Internal Medicine
DX: D68.2 Hereditary deficiency of other clotting factors (principal); D68.51 Activated protein C resistance; Z86.718 Personal history of other venous thrombosis and embolism
CPT/HCPCS: 36415; 85610

== ENCOUNTER 2023-09-10 12:32 | Outpatient (CLI) | payer OTHER ==
[2023-09-10 15:41] LABS: PT - PROTHROMBIN TIME 44.7 secs (9.9-12.6)
[2023-09-10 16:14] LABS: INR 4.5 (0.8-1.2)
== END 2023-09-10 12:33 | disposition home or self-care (01) ==
LOC: LAB.S 12:32
PROVIDERS: ATTEND Internal Medicine
DX: D68.2 Hereditary deficiency of other clotting factors (principal); D68.51 Activated protein C resistance; Z86.718 Personal history of other venous thrombosis and embolism
CPT/HCPCS: 36415; 85610

== ENCOUNTER 2023-10-04 10:12 | Outpatient (CLI) | payer OTHER ==
[2023-10-04 15:52] LABS: INR 2.8 (0.8-1.2); PT - PROTHROMBIN TIME 28.7 secs (9.9-12.6)
== END 2023-10-04 10:13 | disposition home or self-care (01) ==
LOC: LAB.S 10:12
PROVIDERS: ATTEND Family Medicine
DX: D68.2 Hereditary deficiency of other clotting factors (principal); D68.51 Activated protein C resistance; Z86.718 Personal history of other venous thrombosis and embolism
CPT/HCPCS: 36415; 36416; 85610

== ENCOUNTER 2023-11-22 13:38 | Outpatient (CLI) | payer OTHER ==
[2023-11-22 20:35] LABS: PT - PROTHROMBIN TIME 30.9 secs (9.9-12.6)
== END 2023-11-22 13:39 | disposition home or self-care (01) ==
LOC: LAB.S 13:38
PROVIDERS: ATTEND Internal Medicine
DX: D68.51 Activated protein C resistance (principal); Z79.01 Long term (current) use of anticoagulants
CPT/HCPCS: 36415; 85610